=== PATIENT | female | born 1945 | race Two or more races ===

== ENCOUNTER 2023-05-15 11:00 | Emergency (ER) | payer OTHER ==
[~2023-05-15] VITALS: Ht 170.2 cm; Wt 90.7 kg
[2023-05-15] MEDS ORDERED: LISINOPRIL2.5 MG PO (11:31)
[2023-05-15] MEDS ORDERED: ZETIA10 MG PO (11:31)
[2023-05-15] MEDS ORDERED: TOPROL XL25 M1 PO (11:31)
[2023-05-15] MEDS ORDERED: GRALISE600 MG PO (11:32)
[2023-05-15] MEDS ORDERED: ISOSORBIDE DINI30 MG PO (11:32)
[2023-05-15] MEDS ORDERED: ALDACTONE25 MG PO (11:32)
[2023-05-15] MEDS ORDERED: ADULT LOW DOSE81 M1 PO (11:33)
[2023-05-15] MEDS ORDERED: ELIQUIS5 MG PO (11:33)
[2023-05-15 13:44] LABS: HEMATOCRIT 40.3 % (36.0-45.00); HEMOGLOBIN 13.3 g/dL (12.0-15.00); MEAN CELL VOLUME 88.4 fL (80.00-100.00); MEAN CORPUSCULAR HEMOGLOBIN 29.1 pg (27.00-32.0); MEAN CORPUSCULAR HGB CONC 32.9 g/dl (32.0-36.0); PLATELET COUNT 385 K/uL (150-450); RED BLOOD COUNT 4.56 M/uL (4.00-6.00); RED CELL DISTRIBUTION WIDTH 15.2 % (11.5-14.5)
[2023-05-15 14:06] LABS: FECAL LEUKOCYTES POSITIVE (NEGATIVE); ob POSITIVE (NEGATIVE)
[2023-05-15 14:14] LABS: ALBUMIN 3.2 gm/dL (3.4-5.0); BILIRUBIN TOTAL 0.74 mg/dL (0.3-1.2); BILIRUBIN,CONJUGATED 0.26 mg/dL (0.0-0.2); BILIRUBIN,UNCONJUGATED 0.48 mg/dL (0.0-0.6); CALCIUM 10.3 mg/dL (8.5-10.1); CREATININE SERUM 1.63 mg/dL (0.55-1.02); GFR 30.51; POTASSIUM 4.05 mEq/L (3.5-5.1); TOTAL PROTEIN 7.8 gm/dL (6.4-8.2)
== END 2023-05-15 20:46 | disposition home or self-care (01) ==
LOC: ER 11:01
PROVIDERS: General Practice
DX: R10.9 Unspecified abdominal pain (principal); Z86.73 Personal history of transient ischemic attack (TIA), and cerebral infarction without residual deficits; Z86.711 Personal history of pulmonary embolism; I10 Essential (primary) hypertension; Z79.84 Long term (current) use of oral hypoglycemic drugs; K59.00 Constipation, unspecified; K62.89 Other specified diseases of anus and rectum
CPT/HCPCS: 36415; 74019; 74177; 96365; 96366; 99284; J0744; J3490; J7030